=== PATIENT | female | born 1945 | race African-American/Black ===

== ENCOUNTER → 2018-05-01 | Outpatient (CLI) | payer OTHER ==
[~2018-05-01] MED LIST: REGADENOSON 0.4 MG/5 ML SYR IV ONE
--- NOTE | 2018-05-02 08:21 | Cardiology Report ---
DATE OF STUDY: LEXISCAN NUCLEAR STRESS TEST INDICATION: Chest pain. TECHNIQUE: The patient was given 10.7 millicuries of Myoview. Resting images were obtained in the horizontal long axis, vertical long axis, and short axis. The patient was then hooked up to the EKG machine. Lexiscan was infused over 15 seconds. One minute after completion of Lexiscan, the patient was given 32.9 millicuries of Myoview. Stress images were obtained 30 minutes after completion of Lexiscan infusion. Stress images were obtained in the horizontal long axis, vertical long axis and short axis. The patient had no symptoms during Lexiscan infusion. RESULTS: Are as follows: 1. The resting EKG demonstrated normal sinus rhythm with nonspecific S/T and T-wave changes. 2. There were no EKG changes and no symptoms during Lexiscan infusion. 3. There was normal perfusion to all segments of the myocardium in both stress and rest. 4. There was normal left ventricular size and function. CONCLUSION: There is no evidence of myocardial ischemia. There is no reversible defect. There is no fixed defect. There is normal left ventricular size and function. Job#: [id number] OR
== END ==
LOC: NM 10:19
PROVIDERS: ATTEND Internal Medicine Cardiovascular Disease
DX: R07.2 Precordial pain (principal)
CPT/HCPCS: 78452; 93017; A9502; J2785

== ENCOUNTER → 2020-07-22 | Outpatient (CLI) | payer MEDICARE ==
[~2020-07-22] MED LIST changes: +AMILORIDE HCL-1 EACH PO; +CALCIUM 500+D1 EACH PO; +LOSARTAN POTASS25 MG PO; +MAGNESIUM OXID400 MG PO; +METFORMIN HCL500 MG PO; +METOPROLOL SUCC50 MG PO; -REGADENOSON 0.4 MG/5 ML SYR IV ONE
== END ==
LOC: US 09:31
PROVIDERS: ATTEND Obstetrics & Gynecology
DX: R10.2 Pelvic and perineal pain (principal)
CPT/HCPCS: 76770

== ENCOUNTER 2023-08-29 12:31 | Observation (INO) | payer MEDICARE ==
[~2023-08-29] VITALS: Ht 165.1 cm; Wt 95.3 kg
[2023-08-29 13:55] LABS: BASOPHILS % 0.4 % (0.0-1.0); EOSINOPHILS # (AUTO) 0.1 (0.0-0.4); EOSINOPHILS % 1.3 % (0.0-6.0); HEMATOCRIT 44.9 % (34.2-44.1); HEMOGLOBIN 14.1 g/dL (12.0-16.0); LYMPHOCYTES # (AUTO) 2.9 (1.0-3.2); LYMPHOCYTES % 36.9 % (18.0-39.1); MEAN CORPUSCULAR HEMOGLOBIN 26.8 pg (28-32); MEAN CORPUSCULAR HGB CONC 31.4 g/dL (31-35); MEAN CORPUSCULAR VOLUME 85.2 fL (81-99); MONOCYTES # (AUTO) 0.9 (0.2-0.8); NEUTROPHILS % 50.3 % (38.7-80.0); PLATELET COUNT 164 x10e3/uL (140-360); RED BLOOD COUNT 5.27 x10e6/uL (3.6-5.1); RED CELL DISTRIBUTION WIDTH 15.6 % (11.7-14.4); WHITE BLOOD COUNT 7.84 x10e3/uL (4.8-10.8)
[2023-08-29 14:08] LABS: INR 1.07; PROTHROMBIN TIME 14.1 seconds (11.9-14.5)
[2023-08-29 14:09] LABS: PARTIAL THROMBOPLASTIN TIME 26.5 seconds (23.8-35.5)
[2023-08-29 14:17] LABS: ALANINE AMINOTRANSFERASE 13 IU/L (0-55); ALBUMIN 3.9 g/dL (3.5-5.0); ALBUMIN/GLOBULIN RATIO 1.3 (0.8-2.0); ALKALINE PHOSPHATASE 82 IU/L (40-150); ANION GAP 13.9 mmol/L (8-16); BILIRUBIN,TOTAL 0.7 mg/dL (0.2-1.2); BLOOD UREA NITROGEN 12 mg/dL (7-26); BUN/CREATININE RATIO 16 (6-25); CARBON DIOXIDE 22 mmol/L (22-29); CHLORIDE 107 mmol/L (98-107); CREATINE KINASE 70 IU/L (29-168); CREATININE, SERUM 0.75 mg/dL (0.57-1.11); EST GLOMERULAR FILTRATION RATE 81 ML/MIN (>=60); GLUCOSE 74 mg/dL (74-118); LIPASE 28 U/L (8-78); POTASSIUM 3.9 mmol/L (3.5-5.1); SODIUM 139 mmol/L (136-145)
[2023-08-29 14:28] LABS: TROPONIN I < 0.001 ng/mL (0-0.300)
[2023-08-29] MEDS: ASPIRIN 81 MG CHEW TAB PO ONE ×2 (14:53→17:58)
[2023-08-29] MEDS ORDERED: ONDANSETRON HCL INJ 2MG/ML 2ML 2 MG/ML VIAL IV PRN (15:15)
[2023-08-29 15:36] LABS: BILIRUBIN,URINE NEGATIVE (NEGATIVE); CLARITY,URINE CLEAR (CLEAR); COLOR,URINE YELLOW (YELLOW); GLUCOSE, URINE NEGATIVE (NEGATIVE); KETONES,URINE NEGATIVE (NEGATIVE); LEUKOCYTE ESTERASE ,URINE NEGATIVE (NEGATIVE); NITRITE,URINE NEGATIVE (NEGATIVE); PH,URINE 7 (5 - 7); PROTEIN,URINE DIPSTICK NEGATIVE (NEGATIVE); URINE UROBILINOGEN 0.2 mg/dL (0.2 - 1)
[2023-08-29 15:45] LABS: BACTERIA,URINE MODERATE /HPF; RBC,URINE 0-5 /HPF (0-5)
[2023-08-29 15:46] LABS: EPITHELIAL CELLS,URINE MANY /LPF
[2023-08-29 17:05] VITALS: BP 164/86; PULSE 72; RESP 19; TEMP 97.8; O2SAT 97
[2023-08-29] MEDS ORDERED: FLUTICASONE PRO16 GM NS (18:06)
[2023-08-29] MEDS ORDERED: ATORVASTATIN CA10 MG PO (18:06)
[2023-08-29] MEDS ORDERED: SPIRONOLACTONE25 MG PO (18:06)
[2023-08-29 18:07] VITALS: BP 164/86; PULSE 71; RESP 18; TEMP 97.8; O2SAT 100
[2023-08-29 20:00] VITALS: BP 157/77; PULSE 70; RESP 18; TEMP 97.3; O2SAT 96
[2023-08-30] VITALS: BP 156/69; PULSE 64; RESP 18; TEMP 97.6; O2SAT 97
[2023-08-30 04:00] VITALS: BP 140/68; PULSE 66; RESP 18; TEMP 97.6; O2SAT 97
[2023-08-30 05:22] LABS: BASOPHILS % 0.3 % (0.0-1.0); EOSINOPHILS # (AUTO) 0.2 (0.0-0.4); EOSINOPHILS % 2.6 % (0.0-6.0); HEMATOCRIT 41.4 % (34.2-44.1); HEMOGLOBIN 13.1 g/dL (12.0-16.0); LYMPHOCYTES # (AUTO) 2.7 (1.0-3.2); MEAN CORPUSCULAR HEMOGLOBIN 27.1 pg (28-32); MEAN CORPUSCULAR HGB CONC 31.6 g/dL (31-35); MEAN CORPUSCULAR VOLUME 85.7 fL (81-99); MONOCYTES # (AUTO) 0.7 (0.2-0.8); MONOCYTES % 11.3 % (4.4-11.3); NEUTROPHILS # (AUTO) 2.8 (2.1-6.9); NEUTROPHILS % 43.6 % (38.7-80.0); PLATELET COUNT 152 x10e3/uL (140-360); RED BLOOD COUNT 4.83 x10e6/uL (3.6-5.1); RED CELL DISTRIBUTION WIDTH 15.6 % (11.7-14.4); WHITE BLOOD COUNT 6.45 x10e3/uL (4.8-10.8)
[2023-08-30 05:44] LABS: ANION GAP 10.6 mmol/L (8-16); CREATININE, SERUM 0.63 mg/dL (0.57-1.11); POTASSIUM 3.6 mmol/L (3.5-5.1)
[2023-08-30 05:45] LABS: ALBUMIN 3.3 g/dL (3.5-5.0); ALBUMIN/GLOBULIN RATIO 1.4 (0.8-2.0); BILIRUBIN,TOTAL 0.7 mg/dL (0.2-1.2); CALCIUM 9.3 mg/dL (8.4-10.2); TOTAL PROTEIN 5.7 g/dL (6.5-8.1)
[2023-08-30] MEDS: SODIUM CHLORIDE FLUSH 10 ML SYR INJ PRN (05:45)
[2023-08-30 06:05] LABS: CHOL/HDL RATIO 2.4 (3.0-3.6)
[2023-08-30 06:08] LABS: CREATINE KINASE 54 IU/L (29-168)
[2023-08-30 06:17] LABS: TROPONIN I < 0.001 ng/mL (0-0.300)
[2023-08-30 08:00] VITALS: BP 140/68; PULSE 66; RESP 18; TEMP 97.6; O2SAT 97
[2023-08-30 08:01] VITALS: BP 160/80; PULSE 72; RESP 17; TEMP 97.9; O2SAT 96
[2023-08-30] MEDS ORDERED: METOPROLOL SUCCINATE 50 MG TAB XL PO SCH (09:00)
[2023-08-30] MEDS ORDERED: ASPIRIN 325 MG TAB PO SCH (09:00)
[2023-08-30] MEDS: ASPIRIN 81 MG CHEW TAB PO SCH (09:29)
[2023-08-30] MEDS: TRIAMTERENE/HCTZ 37.5-25 MG TAB PO SCH (09:29)
[2023-08-30] MEDS: METOPROLOL SUCCINATE 50 MG TAB XL PO SCH (09:34)
[2023-08-30] MEDS: SPIRONOLACTONE 25 MG TAB PO SCH (09:35)
[2023-08-30 11:34] VITALS: BP 146/72; PULSE 71; RESP 18; TEMP 97.3; O2SAT 99
[2023-08-30] MEDS ORDERED: ATORVASTATIN 10 MG TAB PO SCH (21:00)
[2023-08-30] MEDS ORDERED: LOSARTAN POTASSIUM 25 MG TAB PO SCH (21:00)
== END 2023-08-30 12:24 | disposition home or self-care (01) ==
LOC: ER 12:58 → ERHOLD 15:10 → MED/SURG 17:05
PROVIDERS: ADMIT Internal Medicine; ATTEND Internal Medicine
DX: R07.89 Other chest pain (principal); E11.9 Type 2 diabetes mellitus without complications; I10 Essential (primary) hypertension; E66.8 Other obesity; Z68.35 Body mass index [BMI] 35.0-35.9, adult; Z98.61 Coronary angioplasty status; Z11.52 Encounter for screening for COVID-19; Z88.6 Allergy status to analgesic agent; Z79.82 Long term (current) use of aspirin; Z79.84 Long term (current) use of oral hypoglycemic drugs; Z79.899 Other long term (current) drug therapy
CPT/HCPCS: 36415 ×2; 71045; 73610; 80053 ×2; 80061; 81001; 82550 ×2; 82948 ×2; 83690; 83735; 83880; 84484 ×2; 85025 ×2; 85610; 85730; 93005 ×2; 93306; 99284; G0378 ×2; U0002